=== PATIENT | female | born 1990 | race Hispanic/Latino ===

== ENCOUNTER 2021-01-17 14:36 | Emergency (ER) | payer OTHER ==
[2021-01-17] MEDS ORDERED: Ibuprofen 200 MG TAB ONE (15:35)
[2021-01-17 16:41] LABS: #Eosinphils 0.1 10x3/uL (0.0-0.5); #Monocytes 1.1 10x3/uL (0.0-1.1); #Neutrophils 12.3 10x3/uL (1.5-8.4); %Basophils 0.2 % (0.0-2.0); %Eosinophils 0.8 % (0.0-6.0); %Lymphocytes 9.3 % (18.0-47.0); %Monocytes 7.4 % (0.0-10.0); Hemoglobin 13.3 g/dL (12.0-15.5); Mean Corpuscular Hemoglobin 31.8 pg (27.0-33.0); Mean Corpuscular Volume 90.9 fl (81.6-98.3); Mean Platelet Volume 11.5 fl (7.4-10.4); Platelet Count 205 10x3/uL (150-450); RBC Distribution Width 11.7 % (11.5-14.5); Red Blood Cell (RBC) Count 4.18 10x6/uL (3.90-5.03)
== END 2021-01-17 18:06 | disposition home or self-care (01) ==
LOC: CSHERS 14:36
DX: O03.4 Incomplete spontaneous abortion without complication (principal)
CPT/HCPCS: 85025; 86900; 86901; 99284